=== PATIENT | male | born 1980 | race Two or more races ===

== ENCOUNTER → 2019-07-08 | Outpatient (CLI) | payer OTHER ==
--- NOTE | 2019-07-08 12:12 | KCIC ---
MRI Lumbar Spine without contrast History: Lumbar back pain, radiculopathy of the right lower extremity, right leg pain Technique: Multiplanar, multi sequential noncontrast MR imaging was performed of the lumbar spine. Comparison: None Findings: Lumbar vertebral body stature and AP alignment are maintained. Conus terminates at L1. There is moderate degenerative disc disease at L4-5 and to a somewhat lesser degree L3-4, minimally L5-S1. There is no significant marrow edema. 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 L1-L2: There is very shallow posterior protrusion. Spinal canal and the neural foramina are adequate. L2-L3: Neural foramina and spinal canal are adequate. There is mild facet degenerative change, buckling of the ligamentum flavum, and prominence of posterior epidural fat. L3-L4: There is minimal disc osteophyte complex somewhat greater in the left lateral recess. There is mild buckling of the ligamentum flavum and facet degenerative change. There is [id number] narrowing of the far left lateral recess with contact of the descending left L4 nerve root. There is mild narrowing of the left neural foramen, right neural foramen adequate. L4-L5: There is minimal disc osteophyte complex. There is superimposed extrusion extending below the intervertebral disc space centrally and in the right paracentral region about 9 mm CC by 10 mm transverse by 2 3 mm AP. There is mild facet degenerative change and buckling of the ligamentum flavum. There is mild to moderate narrowing of the far lateral recesses greater on the right. Extrusion is near the descending right L5 nerve root. There is mild narrowing of the left neural foramen, right neural foramen adequate. L5-S1: There is posterior protrusion greatest centrally about 3 to 4 mm AP, near the descending right S1 nerve root without significant impingement. Spinal canal is overall adequate. There is mild facet degenerative change greater on the left. There is mild narrowing of the left neural foramen by disc osteophyte complex, right neural foramen adequate. Impression: 1. There is extrusion extending below the L4-5 intervertebral disc space more eccentric to the right lateral recess near the descending right L5 nerve root. There is [id number] narrowing of the far lateral recesses greater on the right at L4-5, also [id number] left lateral recess stenosis at L3-4 with contact descending left L4 nerve root 2. There is moderate degenerative disc disease L4-5, to lesser degree L3-4 and L5-S1. 3. There is mild narrowing of the left L3-4 through L5-S1 neural foramina. Electronically signed by: Ranjan Downing MD (07/08/2019 12:09 PM) [id number]
== END | disposition home or self-care (01) ==
LOC: KCIC MRI 10:41 → EDBD 11:00
DX: M51.17 Intervertebral disc disorders with radiculopathy, lumbosacral region (principal); M48.07 Spinal stenosis, lumbosacral region; M25.78 Osteophyte, vertebrae
CPT/HCPCS: 72148